=== PATIENT | female | born 1970 | race Caucasian/White ===

== ENCOUNTER 2022-03-23 09:50 | Day surgery (SDC) | payer OTHER ==
[~2022-03-23] VITALS: Ht 162.6 cm; Wt 65.8 kg
[2022-03-23] MEDS ORDERED: diphenhydrAMINE 50 MG/ML VIAL ONE (10:49)
[2022-03-23] MEDS ORDERED: fentaNYL citrate 0.05 MG/ML VIAL ONE (10:49)
[2022-03-23] MEDS ORDERED: MIDAZOLAM 2 MG/2 ML VIAL ONE (10:50)
[2022-03-23] MEDS ORDERED: LIDOCAINE 2% 100 MG/5 ML UJET TP ONE (10:50)
[2022-03-23] MEDS ORDERED: MIDAZOLAM 2 MG/2 ML VIAL IVP ONE (11:35)
[2022-03-23] MEDS ORDERED: fentaNYL citrate 0.05 MG/ML VIAL IVP ONE (11:35)
[2022-03-23] MEDS ORDERED: diphenhydrAMINE 50 MG/ML VIAL IVP ONE (11:35)
== END 2022-03-23 12:33 | disposition home or self-care (01) ==
LOC: MMU 09:50 → MDS 09:50
PROVIDERS: ATTEND Internal Medicine Gastroenterology
DX: Z12.11 Encounter for screening for malignant neoplasm of colon (principal); I10 Essential (primary) hypertension; E11.9 Type 2 diabetes mellitus without complications; Z79.84 Long term (current) use of oral hypoglycemic drugs; Z79.899 Other long term (current) drug therapy; Z98.84 Bariatric surgery status; Z20.822 Contact with and (suspected) exposure to COVID-19
CPT/HCPCS: 45378; 87426; J1200; J2250; J3010; 82948